=== PATIENT | male | born 1960 | race African-American/Black ===

== ENCOUNTER 2021-07-14 12:13 | Emergency (ER) | payer OTHER ==
[~2021-07-14] VITALS: Ht 167.6 cm; Wt 72.0 kg
[~2021-07-14 12:13] MED LIST: LEVAQUIN750 M1 PO
[2021-07-14 13:26] LABS: HEMATOCRIT 39.2 % (39.0-50.0); HEMOGLOBIN 12.1 g/dl (14.0-18.0); IMMATURE GRANULOCYTES 0.4 % (0.0-5.0); MEAN CELL VOLUME 73.3 fL CALC (80.0-100.0); MEAN CORPUSCULAR HGB 22.6 pG CALC (26.0-32.0); MEAN CORPUSCULAR HGB CONC 30.9 g/dL CAL (32.0-36.0); NEUT# 3.74 thou/uL (1.82-7.42); RED BLOOD COUNT 5.35 mill/uL (4.70-6.10); RED CELL DISTRI WIDTH 17.9 % (11.5-15.5)
[2021-07-14 13:29] LABS: URINE BILIRUBIN - DIPSTICK NEGATIVE (NEGATIVE); URINE BLOOD DIPSTICK NEGATIVE (NEGATIVE); URINE COLOR YELLOW; URINE GLUCOSE - DIPSTICK NEGATIVE (NEGATIVE); URINE KETONE NEGATIVE (NEGATIVE); URINE LEUK ESTERASE NEGATIVE (NEGATIVE); URINE MUCUS MODERATE hpf (NONE-FEW); URINE NITRITE - DIPSTICK NEGATIVE (Negative); URINE PH 5.5 (4.5-8.0); URINE PROTEIN - DIPSTICK 100 mg/dL (NEG-TRACE); URINE SPECIFIC GRAVITY >=1.030
[2021-07-14 13:39] LABS: ALBUMIN 3.9 g/dL (3.2-5.0); ALKALINE PHOSPHATASE 152 u/l (38-126); ANION GAP 14 (6-22 (CALC)); BILIRUBIN, TOTAL 2.1 mg/dL (0.0-1.4); BUN 25 mg/dL (8-23); BUN/CREATININE RATIO 23 (12-20 (CALC)); CARBON DIOXIDE 24 mmol/l (22-30); CHLORIDE 107 mmol/l (95-108); CREATININE 1.1 mg/dL (0.7-1.3); GFR > 60 ML/MIN (>=60 (CALC)); GFR FOR AFR.AMER. > 60 ML/MIN (>=60 (CALC)); LIPASE 84 u/l (23-300); POTASSIUM 4.6 mmol/l (3.5-5.1); SGOT/AST 71 u/l (19-48); SODIUM 141 mmol/l (137-146); TOTAL PROTEIN 7.5 g/dL (6.3-8.2)
[2021-07-14 13:51] LABS: MYOGLOBIN 57 ng/mL (0 - 121)
[2021-07-14 14:47] VITALS: BP 146/103
== END 2021-07-14 14:43 | disposition home or self-care (01) | DRG 293 ==
LOC: ED 12:13
PROVIDERS: Emergency Medicine
DX: I11.0 Hypertensive heart disease with heart failure (principal); I50.9 Heart failure, unspecified; I42.9 Cardiomyopathy, unspecified; T50.1X6A Underdosing of loop [high-ceiling] diuretics, initial encounter; Z91.128 Patient's intentional underdosing of medication regimen for other reason

== ENCOUNTER 2021-08-19 01:23 | Emergency (ER) | payer OTHER ==
[~2021-08-19] VITALS: Ht 167.6 cm; Wt 66.8 kg
[2021-08-19] MEDS ORDERED: AMOX/K CLAV875 M1 PO (02:16)
[2021-08-19 02:19] VITALS: BP 140/72
== END 2021-08-19 02:25 | disposition designated cancer center or children's hospital (05) | DRG 151 ==
LOC: ED 01:23
PROC: 2Y41X5Z Packing of Nasal Region using Packing Material (ICD-10-PCS; principal; 2021-08-19)
DX: R04.0 Epistaxis (principal); I42.9 Cardiomyopathy, unspecified; I10 Essential (primary) hypertension

== ENCOUNTER 2021-10-09 23:18 | Emergency (ER) | payer OTHER ==
[~2021-10-09] VITALS: Ht 167.6 cm; Wt 64.0 kg
[~2021-10-09 23:18] MED LIST changes: +AMOX/K CLAV875 M1 PO
[2021-10-09] MEDS ORDERED: AMOX/K CLAV875 M1 PO (23:58)
[2021-10-10 01:12] LABS: HEMOGLOBIN 10.9 g/dl (14.0-18.0); IMMATURE GRANULOCYTES 0.4 % (0.0-5.0); MEAN CORPUSCULAR HGB 23.4 pG CALC (26.0-32.0); MEAN CORPUSCULAR HGB CONC 29.5 g/dL CAL (32.0-36.0); NEUT# 2.36 thou/uL (1.82-7.42); RED BLOOD COUNT 4.66 mill/uL (4.70-6.10); RED CELL DISTRI WIDTH 27.2 % (11.5-15.5)
[2021-10-10 01:18] LABS: MEAN CELL VOLUME 79.4 fL CALC (80.0-100.0)
[2021-10-10 01:28] LABS: ACT PARTIAL THROMBO TIME 23.6 SECONDS (20.0-32.5); INTERNATIONAL NORMALIZED RATIO 1.1 RATIO (0.7-1.3); PROTHROMBIN TIME 11.1 SECONDS (9.0-12.5)
[2021-10-10 01:32] LABS: ALBUMIN 4.1 g/dL (3.2-5.0); ALKALINE PHOSPHATASE 152 u/l (38-126); ANION GAP 15 (6-22 (CALC)); BUN 24 mg/dL (8-23); BUN/CREATININE RATIO 25 (12-20 (CALC)); CARBON DIOXIDE 26 mmol/l (22-30); CHLORIDE 102 mmol/l (95-108); GFR > 60 ML/MIN (>=60 (CALC)); GFR FOR AFR.AMER. > 60 ML/MIN (>=60 (CALC)); POTASSIUM 4.5 mmol/l (3.5-5.1); SGOT/AST 62 u/l (19-48); SODIUM 137 mmol/l (137-146); TOTAL PROTEIN 7.5 g/dL (6.3-8.2)
[2021-10-10 01:34] LABS: BILIRUBIN, TOTAL 0.9 mg/dL (0.0-1.4)
[2021-10-10] MEDS ORDERED: ASPIRIN EC LOW81 MG PO (01:52)
[2021-10-10] MEDS ORDERED: FE TABS325 MG PO (01:54)
[2021-10-10] MEDS ORDERED: METOPROL TAR25 MG PO (01:55)
[2021-10-10] MEDS ORDERED: ALLERG PO (01:57)
[2021-10-10] MEDS ORDERED: HALOPERIDOL DECANOAT PO (02:02)
[2021-10-10] MEDS ORDERED: HALOPER DEC100 MG/ML IM (02:04)
[2021-10-10] MEDS ORDERED: ATORVASTATIN CA40 MG PO (02:26)
[2021-10-10] MEDS ORDERED: CLOPIDOGREL75 MG PO (02:26)
[2021-10-10] MEDS ORDERED: FUROSEMIDE20 MG PO (02:27)
[2021-10-10 03:59] VITALS: BP 140/68
== END 2021-10-10 03:59 | disposition short-term general hospital (02) | DRG 151 ==
LOC: ED 23:18
PROC: 2Y41X5Z Packing of Nasal Region using Packing Material (ICD-10-PCS; principal; 2021-10-09)
DX: R04.0 Epistaxis (principal); I42.9 Cardiomyopathy, unspecified; I10 Essential (primary) hypertension; Z53.20 Procedure and treatment not carried out because of patient's decision for unspecified reasons

== ENCOUNTER 2021-12-09 02:41 | Emergency (ER) | payer OTHER ==
[~2021-12-09] VITALS: Ht 167.6 cm; Wt 66.8 kg
[2021-12-09] VITALS (7 sets, daily range): BP systolic 158–174; BP diastolic 95–103
[~2021-12-09 02:41] MED LIST changes: +ALLERG PO; +ASPIRIN EC LOW81 MG PO; +ATORVASTATIN CA40 MG PO; +CLOPIDOGREL75 MG PO; +FE TABS325 MG PO; +FUROSEMIDE20 MG PO; +HALOPER DEC100 MG/ML IM; +HALOPERIDOL DECANOAT PO; +METOPROL TAR25 MG PO
[2021-12-09] MEDS ORDERED: AMOXICILLIN500 M2 PO (03:05)
[2021-12-09] MEDS ORDERED: DEEP SEA NASAL0.65 % (03:23)
[2021-12-09] MEDS ORDERED: ALLER-CHLOR4 MG PO (03:25)
== END 2021-12-09 03:47 | disposition designated cancer center or children's hospital (05) | DRG 151 ==
LOC: ED 02:41
PROC: 2Y41X5Z Packing of Nasal Region using Packing Material (ICD-10-PCS; principal; 2021-12-09)
DX: R04.0 Epistaxis (principal); I42.9 Cardiomyopathy, unspecified; I10 Essential (primary) hypertension